=== PATIENT | female | born 1965 | race Caucasian/White ===

== ENCOUNTER 2021-01-23 07:45 | Day surgery (SDC) | payer BC ==
[~2021-01-23] VITALS: Ht 154.9 cm; Wt 90.9 kg
[~2021-01-23 07:45] MED LIST: ACIDOPHILUS1 EAC2 PO; CITRACAL + D M1 EACH PO; DAILY VITAMIN1 EAC2 PO; EXCEDRIN EXTRA1 EAC1 PO; PRILOSEC20 MG PO; SINGULAIR10 MG PO
--- NOTE | 2021-01-23 10:27 | NUR ---
01/23/21 1027 Sheets,Saba 1022 PT WAKES TO TACTILE STIMULI AND PT FALLS EASILY BACK TO SLEEP. RESP EVEN AND UNLABORED. VSS.
--- NOTE | 2021-01-23 10:55 | NUR ---
PATIENT BACK TO ROOM FROM PACU. RECEIVED REPORT FROM FERNANDO NAVARRO VSS. PATIENT RATES PAIN 1/10. DRESSING IS CLEAN, DRY, AND INTACT. ICE PACK APPLIED. PROVIDED PATIENT WITH WATER, COFFEE, AND PUDDING. AT BEDSIDE. CALL LIGHT WITHIN REACH.
--- NOTE | 2021-01-23 11:38 | OR ---
[facility] [address] [place], [place] [address] Signed DATE OF OPERATION: 01/23/2021 SURGEON: Loni Thurston MD PREOPERATIVE DIAGNOSES: Subcutaneous mass, right medial scapular area (6 x 5.9 x 1.3 cm). POSTOPERATIVE DIAGNOSIS: Subcutaneous mass, right medial scapular area (6 x 5.9 x 1.3 cm). PROCEDURE: Excision of subcutaneous mass over right scapular area. ESTIMATED BLOOD LOSS: None. INDICATIONS: Stan is a 55-year-old female asked to see me for a subcutaneous mass over the medial inferior corner of her right scapula. She said it has been there for many years. Although, she thinks it has been increasing in size. She said now it is causing her quite a bit of pain. She is very conscious of that lesion. She said she has to pick out soft chairs rather than a wooden chair. It is even causing her trouble at night while she is trying to sleep. She finally went to her primary care provider. An ultrasound demonstrated a 6 x 5.9 x 1.3 cm subcutaneous mass. She was therefore sent to my office to have definitively excised for treatment and pathologic review. In the office, I explained to Stan the nature of the surgery required to remove that lesion. She understands this will be a day surgery. There is risk including, but not limited to bleeding, infection, scarring, change in contour of the skin as well as possible need for additional surgeries based on pathology results. In addition, subcutaneous masses have a propensity to recur even following surgery. She had expressed understanding and wished to proceed. DESCRIPTION OF PROCEDURE: I met with Stan and her in our preop area. With our nurse in the room, we were all able to easily identify this lesion and marked it appropriately. After this, Stan was taken in the operating room and placed in the left lateral decubitus position under general LMA anesthesia with appropriate padding and monitoring. She was given preoperative antibiotics along with subcutaneous heparin. SCDs were utilized. She had been prepped and draped in the usual sterile fashion. We made a standard transverse incision over the lesion and carried down and around the lesion with the help of the Electronically Signed By: LONI THURSTON MD 01/23/21 1138 PATIENT NAME: STAN LAST OPERATIVE REPORT DATE OF : 65 REPORT #: [id number] PHYSICIAN: LONI THURSTON MD PCP: SHIRA SANTOS MD REPORT IS CONFIDENTIAL AND NOT TO BE RELEASED WITHOUT AUTHORIZATION [facility] [address] [place], [place] [address] Signed cautery. The lesion was exactly as described on the ultrasound. Clinically, it is most consistent with a lipoma. The wound was then injected with local anesthetic. The wound was irrigated and suctioned out until clear. The skin and dermis were reapproximated with interrupted 3-0 subcuticular Monocryl sutures. The skin edges were reapproximated with a running 5-0 fast absorbing plain gut suture. Dry gauze and tape were then applied. Stan was rotated into the supine position. She was weaned from her anesthesia, extubated in the OR, and taken to the recovery room in stable condition. Loni Thurston MD ALB/MODL /[id number] cc: MD Loni Lopez MD Copies: SHIRA SANTOS MD, ANDREW L MD ~ Electronically Signed By: LONI THURSTON MD 01/23/21 1138 PATIENT NAME: STAN LAST OPERATIVE REPORT DATE OF : 65 REPORT #: [id number] PHYSICIAN: LONI THURSTON MD PCP: SHIRA SANTOS MD REPORT IS CONFIDENTIAL AND NOT TO BE RELEASED WITHOUT AUTHORIZATION
--- NOTE | 2021-01-23 11:50 | NUR ---
PATIENT RESTING COMFORTABLY IN BED. VSS. PAIN /10. DENIES NAUSEA. DRESSING CLEAN DRY AND INTACT. ICE PACK IN PLACE. PATIENT READY TO GO HOME.
--- NOTE | 2021-01-23 12:00 | NUR ---
PATIENT GIVEN DISCHARGE INSTRUCTIONS. ALL QUESTIONS ANSWERED. PROVIDED PATIENT WITH A WHEELCHAIR RIDE TO FRONT OF HOSPTIAL WHERE WAS WAITING WITH THE CAR.
== END 2021-01-23 12:02 | disposition home or self-care (01) ==
LOC: DS 07:45
PROVIDERS: ATTEND Colon & Rectal Surgery
PROC: 0HB6XZZ Excision of Back Skin, External Approach (ICD-10-PCS; principal; 2021-01-23 09:05)
DX: D17.1 Benign lipomatous neoplasm of skin and subcutaneous tissue of trunk (principal); K21.9 Gastro-esophageal reflux disease without esophagitis; E66.9 Obesity, unspecified; Z68.39 Body mass index [BMI] 39.0-39.9, adult
CPT/HCPCS: 00300; J0690; J1100; J1644; J1885; J2001; J2405; J2704; J3010